=== PATIENT | female | born 1985 | race American Indian/Alaskan Native ===

== ENCOUNTER 2016-11-27 09:11 | Inpatient (IN) | payer MEDICAID ==
--- NOTE | 2016-11-25 09:47 | Anesthesia Consultation ---
Anesthesia Consult and Med Hx Date of service: 11/25/16 - Airway Anesthetic Teeth Evaluation: Good, Chipped (upper and lower molars) ROM Head & Neck: Adequate Mental/Hyoid Distance: Adequate Mallampati Class: Class III Intubation Access Assessment: Possibly Difficult - Pulmonary Exam CTA: Yes - Cardiac Exam Cardiac Exam: RRR - Pre-Operative Health Status ASA Pre-Surgery Classification: ASA2 Proposed Anesthetic Plan: General Nerve Block: TAP Block - Pulmonary Hx Smoking: Yes (former smoker 10 years, Quit 2010) - Central Nervous System Hx Psychiatric Problems: No - Other Systems Hx Cancer: No
[2016-11-25 09:50] LABS: Basophils % (Auto) 0.6 % (0.0-1.8); Eosinophils % (Auto) 2.7 % (0.0-4.3); Hematocrit 34.1 % (30.3-42.9); Hemoglobin 10.7 gm/dl (10.1-14.3); Mean Corpuscular HGB Conc 31 % (30-34); Mean Corpuscular Volume 80 fl (79-97); Platelet Count 165 K/mm3 (140-440); Red Blood Count 4.29 M/mm3 (3.65-5.03); Red Cell Distribution Width 19.3 % (13.2-15.2)
[2016-11-25 09:53] LABS: Mean Corpuscular Hemoglobin 25 pg (28-32)
[~2016-11-27 09:11] MED LIST: LACTATED RINGERS 1,000 ML IV SCH; NEURONTIN PO NR; PEPCID IV NR; VERSED IV NR
[2016-11-27] MEDS ORDERED: SUBLIMAZE IV ONE (10:00)
--- NOTE | 2016-11-27 10:59 | Anesthesia Day of Surgery ---
Anesthesia Day of Surgery - Day of Surgery Patient Examined: Yes Patient H&P Reviewed: Yes Patient is NPO: Yes
[2016-11-27] MEDS ORDERED: LACTATED RINGERS 1,000 ML IV SCH (11:00)
[2016-11-27] MEDS ORDERED: ZOFRAN IV PRN (11:00)
[2016-11-27] MEDS ORDERED: MARCAINE-EPI 0.5%-1:200,000 INFILTRATI ONE (11:36)
--- NOTE | 2016-11-27 14:03 | Admit Criteria Form ---
Admission Criteria Documentation: AMBULATORY SURGERY EXCEPTION CRITERIA Ambulatory Surgery Exception Criteria ( Place 'X' for any and all applicable criteria): Surgery or procedure performed on ambulatory basis may require inpatient stay for[A] ANY ONE of the following(1)(2)(3)(4)(5)(6)(7)(8)(9): [X] I. A preoperative situation, condition, or finding that warrants inpatient stay as indicated by ANY ONE of the following: [] a) Inpatient care needed because of severity of a disease or condition rather than the surgery (eg, severe cardiac or respiratory disease, severe infection) (15) (16 ) (17) (18) [] b) Emergent procedure (eg, angioplasty for acute ischemia)(19) [X] c) Complex surgical approach or situation as indicated by ANY ONE of the following(3): [X] i) Open approach needed instead of usual endoscopic, transcatheter, or other less invasive procedure [] ii) Difficult approach because of previous operation [] iii) Airway monitoring required after open neck procedures(20)(21) [] iv) Large mass requiring unusually extensive dissection [] v) Additional complicating feature requiring inpatient care (eg, drain management)(22(23): [] d) Major surgery in a pt with high anesthetic risk as indicated by ANY ONE of the following (2)(3)(5)(7)(8): [] i) ASA risk class III or higher (severe systemic disease impairing function) [D] [] ii) Advanced age (eg, older than 85 years)(14)(24) [] iii) Symptomatic heart failure(25) [] iv) Symptomatic asthma or COPD(8)(21) [] v) Morbid obesity with hemodynamic or respiratory problems(20)( 21)(26)(27) [] vi) Obstructive sleep apnea(20)(21) [] vii) Former premature infants who are younger than 60 weeks [] viii) High risk for severe postoperative abnormalities (eg, severe postoperative hypocalcemia after parathyroidectomy for severe hyperparathyroidism)(27)( 28) [] ix) Unstable angina(25) [] e) Drug-related risk requiring inpatient stay as indicated by ANY ONE of the following(5)(10)(14)(32)(33) [] i) Procedure requires discontinuing drugs or other therapy (eg , antiarrhythmic medication, antiseizure medication), which necessitates inpatient observation or treatment.(18)(31) [] ii) Major surgery and high risk drug use as indicated by ANY ONE of the following: [] 1) Active abuse of cocaine or similar drug [] 2) Monoamine oxidase inhibitor use [] 3) Other drug identified as posing risk [] f) Inadequate outpatient care situation as indicated by ANY ONE of the following(5)(10)(14)(32)(33) [] i) Patient lives remote from medical facility and procedure has urgent complication potential, and temporary nearby residence cannot be arranged [] ii) Patient will have postprocedure incapacitation and inadequate assistance at home, or alternative level of care cannot be arranged. [] iii) Patient will have long general anesthesia or procedure side effect resolution time, and competent person to stay with patient on first postoperative night at home or alternative level of care cannot be arranged. []iv) Other inadequate outpatient situation that cannot be handled by other means [] II. A perioperative event, condition, or finding that warrants inpatient stay as indicated by ANY ONE of the following (1)(2)(3): [] a) Inadequate physiologic recovery: cardiovascular, respiratory, or hemodynamic status not normal or near preoperative baseline(18) [] b) Hemodynamic instability [] c) Patient not alert with near normal or baseline mental status [] d) Temperature not normal or as expected and not appropriate for outpatient treatment of condition [] e) Ambulatory or appropriate activity level status not yet achieved post procedure [E](34)(35)(36) [] f) Operative site not appropriate (eg, unexpected or excessive drainage or bleeding) [] g) Postoperative effects not resolved or adequately managed (eg, significant pain or vomiting not appropriate for outpatient or next level of care)(10)(12) [] h) Complicating features requiring inpatient care as indicated by ANY ONE of the following(37): [] i) Severe complications of procedure (eg, bowel injury, airway compromise, vascular injury,severe hemorrhage) [] ii) Extensive (eg, dissection far beyond usual scope of procedure ) or prolonged (eg, 120 minutes beyond usual) surgery needed requiring inpatient postoperative care [] iii) Conversion to an open or complex procedure that requires inpatient care (eg, open vs laparoscopic cholecystectomy, abdominal vs vaginal hysterectomy)(38) [] iv) Comorbid condition or test result identified during or post procedure that requires inpatient care (7) [] v) Malignant hyperthermia(30) [] vi) Other complicating feature requiring inpatient care(22)(23) Inpatient stay may be needed until ALL of the following are present (1)(2)(3)(4) (5)(6)(10)(14)(33)(40): []a) Physiologic recovery: cardiovascular, respiratory, and hemodynamic status normal or near preoperative baseline []b) Hemodynamic stability []c) Patient alert, with near normal or baseline mental status []d) Temperature appropriate: patient afebrile or temperature appropriate for outpt treatment of condition []e) Activity level appropriate: ambulatory or appropriate activity level post procedure []f) Operative site appropriate as indicated by ALL of the following: []i) Site dry or with expected drainage []ii) Any blood noted is as expected for procedure. []g) Postoperative effects resolved or managed as indicated by ALL of the following: []i) Pain management appropriate for outpatient (or next level of) care(10) []ii) Minimal nausea and vomiting: if present, successfully treated with oral medication(12) []iii) Headache, dizziness, or drowsiness (if present) are mild. []h) Voiding status acceptable as indicated by ANY ONE of the following: []i) Voiding spontaneously []ii) No voiding but instructions given for follow-up in 6 to 8 hours []iii) Urinary catheter in place, and instructions given for follow-up []i) Complicating features requiring inpatient care manageable at a lower level of care(37) []j) Comorbid conditions manageable at a lower level of care(37) The original [employer] content created by [employer] has been revised. The portions of the content which have been revised are identified through the use of italic text or in bold, and [email or web address] [email or web address] has neither reviewed nor approved the modified material. All other unmodified content is copyright [employer]. Please see references footnoted in the original [employer] edition 2016 Admission Criteria Met: Yes
--- NOTE | 2016-11-27 14:19 | History and Physical Report ---
History of Present Illness Date of examination: 11/27/16 Date of admission: 11/27/16 10:26 Chief complaint: uterine fibroids History of present illness: 31y/o with symptomatic uterine fibroids. Patient reports heavy painful menses. Ultrasound demonstrates an enlarged uterus with a 9cm myoma. The patient desires to conceive in the future. Past History Past Medical History: other (fibroids) Past Surgical History: other (LEEP) Social history: - Obstetrical History : 1 Para: 0 Hx # Term Pregnancies: 0 Number of Pregnancies: 0 Spontaneous Abortions: 1 Induced : 0 Number of Living Children: 0 Medications and Allergies Allergies Allergy/AdvReac Type Severity Reaction Status Date / Time No Known Allergies Allergy Verified 11/25/16 09:58 Home Medications Medication Instructions Recorded Confirmed Last Taken Type No Known Home Medications [No 11/18/16 11/18/16 Unknown History Reported Home Medications] Active Meds: Active Medications Famotidine (Pepcid) 20 mg IV PREOP NR Stop: 11/27/16 23:59 Last Admin: 11/27/16 11:50 Dose: 20 mg Hydromorphone HCl (Dilaudid) 0.5 mg IV Q10MIN PRN PRN Reason: Pain , Severe (7-10) Stop: 11/27/16 23:59 Lactated Ringer's (Lactated Ringers) 1,000 mls @ 100 mls/hr IV DIRECT ZENOBIA Midazolam HCl (Versed) 2 mg IV PREOP NR Stop: 11/27/16 23:59 Last Admin: 11/27/16 12:22 Dose: 2 mg Ondansetron HCl (Zofran) 4 mg IV ONCE PRN PRN Reason: Nausea And Vomiting Stop: 11/27/16 23:59 Review of Systems All systems: negative Genitourinary: vaginal bleeding, pelvic pain - Vital Signs Vital signs: Vital Signs Temp Pulse Resp BP 98 F 60 14 128/80 11/25/16 09:25 11/25/16 09:25 11/25/16 09:25 11/25/16 09:25 Temp Pulse Resp BP Pulse Ox 98.5 F 71 16 133/74 100 11/27/16 12:15 11/27/16 13:05 11/27/16 13:05 11/27/16 13:05 11/27/16 13:05 - Physical Exam Breasts: Positive: deferred Lungs: Positive: Clear to auscultation Abdomen: Positive: normal appearance Results Result Diagrams: 11/25/16 09:30 All other labs normal. Assessment and Plan - Patient Problems (1) Leiomyoma Current Visit: Yes Status: Acute Plan to address problem: scheduled for ex-lap/myomoectomy (2) Menorrhagia Current Visit: Yes Status: Acute Qualifiers: Menorrahagia type: M (3) Dysmenorrhea Current Visit: Yes Status: Acute
[2016-11-27] MEDS ORDERED: ANCEF/STERILE WATER 2 GM/20 ML 2 GM/20 ML SYRINGE IV NR (14:30)
[2016-11-27] MEDS ORDERED: ACD-A 500 ML IV ONE (14:46)
[2016-11-27] MEDS ORDERED: METHYLENE BLUE ONE (14:47)
[2016-11-27] MEDS ORDERED: Vasostrict ONE (14:48)
[2016-11-27] MEDS ORDERED: NACL 0.9% 100 ML ONE (14:48)
[2016-11-27] MEDS ORDERED: NEO SYNEPHRINE/NS Syringe(OR USE) IV ONE (15:00)
[2016-11-27] MEDS ORDERED: XYLOCAINE MPF 2% ONE (15:00)
[2016-11-27] MEDS ORDERED: DIPRIVAN 10 MG/ML IV ONE (15:16)
[2016-11-27] MEDS ORDERED: SUBLIMAZE ONE ×2 (15:16→15:48)
[2016-11-27] MEDS ORDERED: ZOFRAN ONE (15:30)
[2016-11-27] MEDS ORDERED: DECADRON ONE (15:30)
[2016-11-27] MEDS ORDERED: DILAUDID ONE (15:35)
[2016-11-27] MEDS ORDERED: ROBINUL ONE ×2 (15:45)
[2016-11-27] MEDS ORDERED: BLOXIVERZ ONE (15:45)
[2016-11-27] MEDS ORDERED: ACD-A IV ONE (15:57)
[2016-11-27] MEDS ORDERED: Vasostrict IM ONE (15:57)
[2016-11-27] MEDS ORDERED: NACL 0.9% IR ONE (15:59)
[2016-11-27] MEDS ORDERED: NACL 0.9% IV ONE (15:59)
[2016-11-27] MEDS ORDERED: NARCAN 0.4 MG/1 ML IV PRN (16:43)
--- NOTE | 2016-11-27 16:43 | Operative Report ---
Operative Report Operative Report: Date of surgery: 11/27/2016 Preoperative diagnosis: Symptomatic uterine fibroids Postoperative diagnosis: Same as above Procedure: Exploratory laparotomy; myomectomy; lysis of adhesions Surgeon: Saritha Acevedo M.D. Anesthesia:Vivi Shaw MD Estimated blood loss: 200 mL Findings: Enlarged fibroid uterus and normal tubes and ovaries bilaterally Indication: 31-year-old 010 with symptomatic uterine fibroids. The patient has a history of menorrhagia and infertility. The patient elected for surgical management Procedure: The patient was taken to the operating room and given general endotracheal anesthesia without complication. The patient is prepped and draped in the normal sterile fashion. A Pfannenstiel skin incision was made down to layer of fascia which was nicked in the midline and extended laterally with the Bovie cautery. Superior aspect of the rectus fascia was grasped with [place] clamps 2 and the rectus muscles off sharply. Performed an inferior fashion as well. Rectus Muscle was in the midline and the peritoneum entered bluntly. The uterus was elevated out of the pelvis. General survey of the patient's pelvis revealed an enlarged fibroid uterus with normal tubes and ovaries bilaterally. There was noted to be approximately 5 myomas identified. The largest myoma was posterior pedunculated approximately 9 cm. The pedunculated myoma was transected and amputated from the corpus of the uterus with the Bovie cautery. The serosal defect was closed with 0 Vicryl in a running locked fashion. The site was hemostatic. A fundal cystic incision was created on the uterus in order to access the next myoma. The leiomyoma was removed with sharp dissection. The myometrial defect was closed with 0 Vicryl in a running fashion of gestational serosal stitch was applied with 0 Vicryl. An additional fundal incision was made in order to access another myoma. The leiomyoma was removed by sharp dissection and the incision closed in a normal fashion. 2 additional anterior myomas were removed in similar fashion. Once all the surgical sites were hemostatic copious irrigation of the pelvis was performed. Interceed was placed over the uterine incisions. The peritoneum was then closed in a running fashion with 3-0 Vicryl. Surgicel was placed over the rectus muscle. The fascia was then closed in a running fashion with 0 Vicryl. The skin was then reapproximated with 3-0 Monocryl and Viet needle subcuticular fashion. Steri-Strips are placed across the incision. A pressure dressing was applied to the incision. The patient was successfully extubated and taken to the recovery room in stable condition. All sponge laps and needle counts correct 2. Pathology sent consisting of 5 leiomyomas.
[2016-11-27] MEDS ORDERED: MILK OF MAGNESIA PO PRN (16:44)
[2016-11-27] MEDS ORDERED: TYLENOL PO PRN (16:44)
[2016-11-27] MEDS ORDERED: MOTRIN PO PRN (16:44)
[2016-11-27] MEDS ORDERED: MORPHINE PCA 30MG/30ML IV SCH (17:00)
[2016-11-27] MEDS: DILAUDID IV PRN ×2 (17:08→17:17)
[2016-11-27] MEDS: TORADOL IV SCH ×2 (17:20→22:48)
--- NOTE | 2016-11-27 17:44 | Post Anesthesia Evaluation ---
- Post Anesthesia Evaluation Patient Participated: Yes Airway Patent: Yes Stable Respiratory Function: Yes Temp > 96.8F: Yes Pain Manageable: Yes Adequeate Hydration: Yes Anesthesia Complications: No Block Receding Appropriately: Not Applicable
[2016-11-28] MEDS: D5LR 1,000 ML IV SCH ×2 (00:05→07:50)
[2016-11-28] MEDS ORDERED: ZOFRAN IV PRN (02:04)
[2016-11-28] MEDS: TORADOL IV SCH (04:58)
[2016-11-28 05:00] LABS: Hematocrit 23.5 % (30.3-42.9); Hemoglobin 7.3 gm/dl (10.1-14.3)
--- NOTE | 2016-11-28 08:28 | Progress Note ---
Assessment and Plan - Patient Problems (1) Leiomyoma Current Visit: Yes Status: Acute Plan to address problem: Routine postoperative care (2) Menorrhagia Current Visit: Yes Status: Acute Qualifiers: Menorrahagia type: M (3) Dysmenorrhea Current Visit: Yes Status: Acute Subjective - Subjective Date of service: 11/28/16 Interval history: The patient reports being able to tolerate a clear diet. She states that she feels hungry. She denies any passage of flatus. The patient's Diaz has been removed but she has not attempted to void as of yet. Her pain is well- controlled. Patient reports: appetite normal, pain well controlled Objective - Vital Signs Latest vital signs: Vital Signs Temp Pulse Resp BP Pulse Ox 11/28/16 04:45 98.3 F 78 20 114/68 11/27/16 23:50 97.9 F 65 18 119/70 11/27/16 20:00 97.2 F L 73 18 125/82 11/27/16 18:30 98.1 F 62 12 138/85 99 11/27/16 17:47 14 11/27/16 17:30 61 9 L 138/96 100 11/27/16 17:20 12 11/27/16 17:17 14 11/27/16 17:08 14 11/27/16 16:50 97.4 F L 80 12 148/97 100 11/27/16 13:05 71 16 133/74 100 11/27/16 13:00 86 17 136/74 100 11/27/16 12:55 77 17 125/81 100 11/27/16 12:50 92 H 11 L 127/84 100 11/27/16 12:45 88 14 141/84 100 11/27/16 12:40 83 15 133/92 100 11/27/16 12:35 66 14 140/92 100 11/27/16 12:30 67 12 137/93 100 11/27/16 12:25 64 20 135/82 100 11/27/16 12:20 67 12 133/79 100 11/27/16 12:15 98.5 F 65 18 144/91 100 11/27/16 11:05 98.5 F 65 18 144/91 100 Intake and Output 11/27/16 11/28/16 11/28/16 22:59 06:59 14:59 Intake Total 895 1120 1000 Output Total 205 200 Balance 054 605 9317 Intake: IV 775 1000 1000 D5lr 1,000 ml @ 125 mls/ 375 1000 1000 hr IV DIRECT ZENOBIA Rx#: [id number] Oral 120 120 Output: Urine 205 200 Indwelling Catheter 200 Uretheral (Diaz) 80 Other: Total, Intake Amount 120 120 Total, Output Amount 200 Voiding Method Indwelling Catheter Weight 65.771 kg - Exam Abdomen: Present: normal appearance, soft Incision: Present: dressed - Labs Labs: Abnormal lab results 11/28/16 Range/Units 04:10 Hgb 7.3 L D (10.1-14.3) gm/dl Hct 23.5 L D (30.3-42.9) %
--- NOTE | 2016-11-28 10:53 | Progress Note ---
Subjective Date of service: 11/28/16 Interval history: 1st POD after abdominal myomectomy Patient is in the bed, comfortable. Pain is well controlled with pain meds. Ambulated well. Had some nausea and vomiting, likely related to pain meds. Feels better now. No anesthesia complications Objective - Constitutional Vitals: Vital Signs - 12hr 11/27/16 11/28/16 11/28/16 23:50 04:45 08:00 Temperature 97.9 F 98.3 F 98.2 F Pulse Rate 65 78 67 Respiratory 18 20 18 Rate Blood Pressure 119/70 114/68 129/71 11/28/16 08:10 Temperature Pulse Rate Respiratory 20 Rate Blood Pressure - Labs CBC & Chem 7: 11/28/16 04:10 Labs: Abnormal lab results 11/28/16 Range/Units 04:10 Hgb 7.3 L D (10.1-14.3) gm/dl Hct 23.5 L D (30.3-42.9) %
[2016-11-28] MEDS: PERCOCET 5/325 PO PRN ×2 (11:22→15:30)
[2016-11-28 15:28] VITALS: BP 115/75
== END 2016-11-28 16:05 | disposition home or self-care (01) | DRG 742 ==
LOC: 3A 10:26 → OB 17:04
PROVIDERS: ADMIT Obstetrics & Gynecology; ATTEND Obstetrics & Gynecology
PROC: 0UB90ZZ Excision of Uterus, Open Approach (ICD-10-PCS; principal; 2016-11-27)
DX: D25.9 Leiomyoma of uterus, unspecified (principal); R71.0 Precipitous drop in hematocrit; Z87.891 Personal history of nicotine dependence; N94.6 Dysmenorrhea, unspecified
CPT/HCPCS: 36415; 64450; 84703; 85014; 85018; 85025; 86850; 86900; 86901; 88305; C1765; J0690; J1100; J1170; J1885; J2250; J2270; J2370; J2405; J2704; J2710; J3010; J7120; J7121; Q9968